=== PATIENT | female | born 1950 | race Caucasian/White ===

== ENCOUNTER 2019-02-27 12:46 | Emergency (ER) | payer MEDICARE, BC ==
[~2019-02-27] VITALS: Ht 167.6 cm; Wt 81.6 kg
--- NOTE | 2019-02-27 13:25 | NUR ---
PT REC'D TO ER VIA EMS PT HX CPOD EMPHYSEMA USED INHALER AND COUGHING GOT NAUSEA DIZZY AND CP TODAY . IV LEFT HAND 20G IVP NITRO GIVEN PER MD ORDER VSS AWAITING EVALUATION BY ER PROVIDER.
[2019-02-27] MEDS ORDERED: IPRATROPIUM NEB FS 0.5 MG/2.5 ML AMPUL.NEB ONE (13:28)
[2019-02-27] MEDS ORDERED: ALBUTEROL FS 2.5 MG/3 ML VIAL.NEB ONE (13:28)
[2019-02-27] MEDS ORDERED: ALBUTEROL FS 2.5 MG/0.5 ML VIAL.NEB ONE ×2 (13:28→13:36)
[2019-02-27] MEDS ORDERED: NITROGLYCERIN 0.4 MG/TAB BOTTLE SL ONE (13:30)
[2019-02-27] MEDS ORDERED: IV NS 0.9% 500 ML BAG IV ONE (13:30)
[2019-02-27] MEDS ORDERED: NITROGLYCERIN 0.4 MG/TAB BOTTLE ONE (13:44)
[2019-02-27 13:49] LABS: BASOPHILS # (AUTO) 0.1 /CMM (0.0-0.2); BASOPHILS % (AUTO) 0.9 % (0.0-2.0); HEMATOCRIT 42 % (33-45); LYMPHOCYTES # (AUTO) 2.4 /CMM (0.8-4.8); MEAN CORPUSCULAR HGB CONC 34 g/dl (31.0-36.0); MEAN CORPUSCULAR VOLUME 92 fL (82-100); MONOCYTES # (AUTO) 0.9 /CMM (0.1-1.30); MONOCYTES % (AUTO) 8.3 % (2.0-12.0); NEUTROPHILS # (AUTO) 7.2 /CMM (1.8-8.9); NEUTROPHILS % (AUTO) 67.8 % (43.0-81.0); PLATELET COUNT (AUTO) 227 /CMM (150-450); RED BLOOD CELL COUNT(AUTO) 4.52 MIL/uL (4.0-5.2); WHITE BLOOD COUNT (AUTO) 10.7 K/uL (4.3-11.0)
[2019-02-27 13:58] LABS: CALCIUM, SERUM 8.6 mg/dL (8.5-10.1); CARBON DIOXIDE 31 mmol/L (21-32); CHLORIDE 102 mmol/L (98-107); CREATININE 0.9 mg/dL (0.6-1.3); GLUCOSE 115 mg/dL (74-106); POTASSIUM 3.8 mmol/L (3.5-5.1); SODIUM SERUM 139 mmol/L (136-145); UREA NITROGEN, BLOOD 13 mg/dL (7-18)
[2019-02-27] MEDS ORDERED: IPRATROPIUM NEB FS 0.5 MG/2.5 ML AMPUL.NEB NEB ONE (14:00)
[2019-02-27] MEDS ORDERED: ALBUTEROL FS 2.5 MG/0.5 ML VIAL.NEB NEB ONE (14:00)
[2019-02-27 14:01] LABS: ABG BASE EXCESS 1.2 mmol/L; ABG OXYGEN SATURATION 85.8 % (92.0-98.5); ABG PCO2 49.8 mmHg (35.0-45.0); ABG PH 7.359 (7.350-7.450); ABG PO2 47.8 mmHg (75.0-100.0); COHb 6.4 % (0.5-1.5); MetHb 0.1 % (0.0-1.5); O2Hb 80.2 % (94.0-97.0); VENT MODE, BG nasal cannula
[2019-02-27 14:11] LABS: ALANINE AMINOTRANSFERASE 24 U/L (12-78); ALBUMIN 3.4 g/dL (3.4-5.0); ALKALINE PHOSPHATASE 80 U/L (46-116); ASPARTATE AMINOTRANSFERASE 16 U/L (15-37); B-TYPE NATRIURETIC PEPTIDE 56 PG/ML (0-125); BILIRUBIN,DIRECT 0.1 mg/dL (0.0-0.2); BILIRUBIN,TOTAL 0.2 mg/dL (0.2-1.0); TOTAL PROTEIN, SERUM 6.4 g/dL (6.4-8.2)
--- NOTE | 2019-02-27 14:40 | NUR ---
PT GIVEN BREATHING TX TOLERATED WELL
--- NOTE | 2019-02-27 15:41 | NUR ---
Patient does not wish to proceed with medical care recommended by ( ). Patient given information related to possible complications, up to and including , which could occur as a result of leaving the hospital at this time. Patient verbalizes understanding of risks involved due to leaving against medical advice. Patient has signed AMA form.
[2019-02-27 15:42] VITALS: BP 115/64
== END 2019-02-27 15:45 | disposition home or self-care (01) ==
LOC: ER 12:47
DX: J44.9 Chronic obstructive pulmonary disease, unspecified (principal); R07.89 Other chest pain; M19.90 Unspecified osteoarthritis, unspecified site; F32.9 Major depressive disorder, single episode, unspecified; F17.200 Nicotine dependence, unspecified, uncomplicated; Z88.0 Allergy status to penicillin
CPT/HCPCS: 36415; 36600; 71045; 80048; 80076; 83690; 83880; 84484; 85025; 85730; 93005; 94640; 99284; J7030